=== PATIENT | female | born 1980 ===

== ENCOUNTER 2020-09-02 08:45 | Inpatient (IN) | payer OTHER ==
[~2020-09-02] VITALS: Ht 177.8 cm; Wt 88.5 kg
[2020-09-02] MEDS ORDERED: IRON PO (11:15)
[2020-09-10] MEDS ORDERED: IRON236 MG (08:36)
[2020-09-10] MEDS ORDERED: Tylenol #3 PO (08:56)
== END 2020-09-10 12:51 | disposition home or self-care (01) | DRG 743 ==
LOC: O/R 09-09 06:09 → OB/GYN 09-09 08:45
PROVIDERS: ADMIT Obstetrics & Gynecology; ATTEND Obstetrics & Gynecology
PROC: 0UQF7ZZ Repair Cul-de-sac, Via Natural or Artificial Opening (ICD-10-PCS; 2020-09-09)
PROC: 0USG7ZZ Reposition Vagina, Via Natural or Artificial Opening (ICD-10-PCS; 2020-09-09)
PROC: 0TJB8ZZ Inspection of Bladder, Via Natural or Artificial Opening Endoscopic (ICD-10-PCS; 2020-09-09)
PROC: 0UT97ZZ Resection of Uterus, Via Natural or Artificial Opening (ICD-10-PCS; principal; 2020-09-09 13:45)
DX: D25.1 Intramural leiomyoma of uterus (principal); N81.11 Cystocele, midline; D25.2 Subserosal leiomyoma of uterus; N72 Inflammatory disease of cervix uteri; D50.0 Iron deficiency anemia secondary to blood loss (chronic)